=== PATIENT | female | born 1945 | race Caucasian/White ===

== ENCOUNTER 2019-08-08 21:10 | Emergency (ER) | payer OTHER ==
[~2019-08-08] VITALS: Ht 157.5 cm; Wt 83.5 kg
[2019-08-08] MEDS ORDERED: ONDANSETRON HCL/PF 4 MG/2 ML VIAL ONE (21:53)
[2019-08-08] MEDS ORDERED: ONDANSETRON HCL/PF 4 MG/2 ML VIAL IVP ONE (22:00)
--- NOTE | 2019-08-08 22:20 | NUR ---
PATCHER BOWLING BALL AT BEDSIDE
--- NOTE | 2019-08-08 22:20 | NUR ---
PARKER FROM HOME TO ER BED 2. AAOX4. NO RESPD DISTRESS NOTED. CAME IN ON A WHEELCHAIR. C/O DRY HEEVING THAT LEAD TO AN ABDOMINAL PAIN. PER PT, DRY HEEVING STARTED THIS MORNING AND HAPPENED AGAIN AT DINNER TIME AROUND 1930.NO REPORTS OF VOMITTING THEN SHE STARTED TO HAVE EPIGASTRIC PAIN. PT RATES HER PAIN 2/10. PT HAD A RECENT L KNEE SURGERY. PT REMAINED ON HER WHEELCHAIR INSTEAD OF GURNEY. WAS AT BEDSIDE FOR EVAL. ORDERS RECEIVED NOTED AND CARRIED OUT. PT KAMERON HAVE A SINGLE LUMEN PICC LINE ON HER SHIRIN. MEDICATED ORDERED. WILL CONTINUE TO MONITOR
[2019-08-08 22:27] LABS: BASOPHILS % (AUTO) 0.6 % (0.0-2.0); EOSINOPHILS % (AUTO) 2.3 % (0.0-6.0); HEMATOCRIT 33 % (33-45); HEMOGLOBIN 10.7 g/dL (11.5-14.8); LYMPHOCYTES # (AUTO) 1.2 /CMM (0.8-4.8); LYMPHOCYTES % (AUTO) 14.6 % (20.0-44.0); MEAN CORPUSCULAR HGB CONC 33 g/dl (31.0-36.0); MEAN CORPUSCULAR VOLUME 85 fL (82-100); MONOCYTES # (AUTO) 0.8 /CMM (0.1-1.30); MONOCYTES % (AUTO) 9.5 % (2.0-12.0); NEUTROPHILS # (AUTO) 5.9 /CMM (1.8-8.9); PLATELET COUNT (AUTO) 349 /CMM (150-450); RED BLOOD CELL COUNT(AUTO) 3.85 MIL/uL (4.0-5.2); WHITE BLOOD COUNT (AUTO) 8.1 K/uL (4.3-11.0)
[2019-08-08 22:43] LABS: CALCIUM, SERUM 9.4 mg/dL (8.5-10.1); CARBON DIOXIDE 26 mmol/L (21-32); CHLORIDE 105 mmol/L (98-107); CREATININE 1.5 mg/dL (0.6-1.3); GLUCOSE 133 mg/dL (74-106); POTASSIUM 3.9 mmol/L (3.5-5.1); SODIUM SERUM 142 mmol/L (136-145); UREA NITROGEN, BLOOD 18 mg/dL (7-18)
[2019-08-08 22:54] LABS: ALANINE AMINOTRANSFERASE 23 U/L (12-78); ALBUMIN 2.9 g/dL (3.4-5.0); ALKALINE PHOSPHATASE 93 U/L (46-116); ASPARTATE AMINOTRANSFERASE 25 U/L (15-37); BILIRUBIN,DIRECT 0.1 mg/dL (0.0-0.2); BILIRUBIN,TOTAL 0.3 mg/dL (0.2-1.0); LIPASE 78 U/L (73-393); TOTAL PROTEIN, SERUM 6.9 g/dL (6.4-8.2)
[2019-08-08 23:13] VITALS: BP 162/79
--- NOTE | 2019-08-08 23:13 | NUR ---
Patient discharged to home in stable condition. Written and verbal after care instructions given. Patient verbalizes understanding of instruction.
== END 2019-08-08 23:14 | disposition home or self-care (01) ==
LOC: ER 21:19
DX: R11.0 Nausea (principal); G40.909 Epilepsy, unspecified, not intractable, without status epilepticus; J45.909 Unspecified asthma, uncomplicated; K21.9 Gastro-esophageal reflux disease without esophagitis; I10 Essential (primary) hypertension; Z96.653 Presence of artificial knee joint, bilateral; Z88.0 Allergy status to penicillin; Z88.8 Allergy status to other drugs, medicaments and biological substances
CPT/HCPCS: 36415; 80048; 80076; 83690; 84484; 85025; 93005; 96374; 99284; J2405